=== PATIENT | male | born 1955 | race Caucasian/White ===

== ENCOUNTER → 2016-08-25 | Outpatient (CLI) | payer OTHER ==
[~2016-08-25] MED LIST: ASPI325T32 PO; ASPI81TA3 PO; GEMF600T PO; HYDR-906 PO; METF1000 PO; PANT40TA4 PO; SIMV40TA2 PO; TRAM50TA2 PO
== END | disposition home or self-care (01) ==
LOC: EDSEX → HKI 09:30 → MERGE 10:00
PROVIDERS: ATTEND Orthopaedic Surgery
DX: Z01.818 Encounter for other preprocedural examination (principal); M16.11 Unilateral primary osteoarthritis, right hip; M25.551 Pain in right hip; M17.11 Unilateral primary osteoarthritis, right knee; M25.561 Pain in right knee
CPT/HCPCS: 87081; Z7500; G0463

== ENCOUNTER 2016-08-28 07:25 | Inpatient (IN) | payer OTHER ==
[2016-08-27 12:19] VITALS: BMI 32.0
[2016-08-28] VITALS (40 sets, daily range): BP systolic 71–117; BP diastolic 52–80; PULSE 102–117; RESP 15–25; Ht 185.4 cm; Wt 111.6 kg
[~2016-08-28] VITALS: Ht 185.4 cm; Wt 111.6 kg
[2016-08-28] MEDS ORDERED: TRANEXAMIC ACID IV ONE (08:00)
[2016-08-28] MEDS ORDERED: ON CALL TO OR IV ONE (08:00)
[2016-08-28] MEDS ORDERED: traMADOL 50 MG TAB X 1 DOSE PO ONE (08:00)
[2016-08-28] MEDS ORDERED: CELECOXIB 400 MG PO X1 DOSE PO ONE (08:00)
[2016-08-28] MEDS ORDERED: oxyCODONE (CR) 10 MG TAB [oxyCONTIN] X1 DOSE PO ONE (08:00)
[2016-08-28] MEDS ORDERED: CEFAZOLIN 2GM/50 ML (PMX) 50 ML X1 BEFORE INCISION IVPB ONE (08:00)
[2016-08-28] MEDS ORDERED: SOD CHLORIDE 0.9% IV ONE (08:00)
[2016-08-28] MEDS: LACTATED RINGER'S 1,000 ML IV SCH ×4 (08:21→23:14)
[2016-08-28] MEDS ORDERED: SOD CHLORIDE 0.9% IVPB SCH (08:30)
[2016-08-28] MEDS: PAIN COCKTAIL-CEFUROXIME IRR SCH ×14 (08:30→13:42)
[2016-08-28] MEDS ORDERED: TRANEXAMIC ACID IVPB SCH (08:30)
[2016-08-28] MEDS ORDERED: PREGABALIN 300 MG PO X1 PO ONE (08:30)
[2016-08-28] MEDS ORDERED: SIMV40TA2 PO (09:05)
[2016-08-28] MEDS ORDERED: ASPI81TA3 PO (09:05)
[2016-08-28] MEDS ORDERED: METF1000 PO (09:05)
[2016-08-28] MEDS ORDERED: GEMF600T PO (09:05)
--- NOTE | 2016-08-28 10:03 | HPN ---
Date/Time of Note Date/Time of Note DATE: 08/28/16 TIME: 10:02 Interval H&P Admission Note Pt. seen H&P reviewed: No system changes No change from H&P by Bg ARGUETA dated 08/14/16 JUAN A MCCLENDON MD Aug 28, 2016 10:03
[2016-08-28] MEDS ORDERED: SODIUM CL BACTERIOSTATIC 30 ML INJ ONE (10:25)
[2016-08-28] MEDS ORDERED: VANCOMYCIN 1 GM INJ ONE (10:25)
[2016-08-28] MEDS ORDERED: POLYMYXIN B 500000 UNIT INJ ONE (10:25)
[2016-08-28] MEDS ORDERED: ONDANSETRON 4 MG INJ ONE (10:37)
[2016-08-28] MEDS ORDERED: PROPOFOL 20 ML ONE (10:37)
[2016-08-28] MEDS ORDERED: METOCLOPRAMIDE 10 MG INJ ONE (10:37)
[2016-08-28] MEDS ORDERED: DEXAMETHASONE 4 MG/ML 1 ML INJ ONE (10:37)
[2016-08-28] MEDS ORDERED: KETOROLAC 30 MG INJ ONE (10:37)
[2016-08-28] MEDS ORDERED: MIDAZOLAM 1 MG/ML 2 ML INJ ONE (10:38)
[2016-08-28] MEDS ORDERED: BACITRACIN 50000 UNITS INJ ONE (10:46)
[2016-08-28] MEDS ORDERED: PHENYLephrine (100 MCG/ML) 5ML SYG ONE ×5 (11:11→14:22)
[2016-08-28] MEDS ORDERED: ONDANSETRON 4 MG INJ IV PRN ×2 (12:30→19:00)
[2016-08-28] MEDS ORDERED: EXPAREL NOTE (BUPIVICAINE LIPOSOMAL) XX SCH (12:30)
[2016-08-28] MEDS ORDERED: BUPIVACAINE LIPOSOME/PF 266 MG/20 ML VIAL INFIL SCH (12:30)
[2016-08-28] MEDS ORDERED: DIPHENHYDRAMINE 50 MG INJ IV PRN (12:30)
[2016-08-28] MEDS ORDERED: METOCLOPRAMIDE 10 MG INJ IV PRN (12:30)
[2016-08-28] MEDS ORDERED: MEPERIDINE 25 MG INJ IV PRN (12:30)
[2016-08-28] MEDS ORDERED: HYDROmorphONE (0.2 MG/ML) 10ML SYG IV PRN ×3 (12:30)
[2016-08-28] MEDS ORDERED: ROCURONIUM 50 MG INJ ONE (12:36)
[2016-08-28] MEDS ORDERED: SUCCINYLCHOLINE CHLORIDE 100 MG/5 ML SYG IV ONE (12:36)
[2016-08-28] MEDS ORDERED: FUROSEMIDE 20 MG INJ ONE (13:54)
--- NOTE | 2016-08-28 14:00 | RADRPT ---
PROCEDURE: Right hip x-rays series CLINICAL INDICATION: Arthroplasty TECHNIQUE: 12 images obtained intraoperatively during a hip arthroplasty procedure. COMPARISON: None available FINDINGS: 12 images were obtained intraoperatively for localization during a hip hemiarthroplasty. 48 seconds of fluoroscopy time was utilized by the physician Dr. Sharma during the procedure in progress. IMPRESSION: 12 images and 48 seconds of fluoroscopy time views intraoperatively for localization during a hip he miarthroplasty. .Grant Oconnor MD, MD Date Time Electronically viewed and signed by .Grant Oconnor MD, on 08/28/2016 14:00 .B/
[2016-08-28] MEDS ORDERED: ALBUMIN HUMAN 5% 250 ML ONE (14:04)
--- NOTE | 2016-08-28 14:28 | OPPN ---
Date/Time of Note Date/Time of Note DATE: 08/28/16 TIME: 14:26 Operative/Procedure Note Dictation # [id number] Pre-Operative Diagnosis Right Hip OA Post-Operative Diagnosis Same Procedure Right Anterior EMERY Surgeon: JUAN A MCCLENDON MD Train Starter: LISETH NICOLE PA-C Anesthesiologist: YOLANDA CASTAÑEDA MD Findings Severe OA Blood Usage/Administration None Implants/Grafts Depuy EMERY Estimated blood loss: other Drains Hemovac x 1 Specimens Femoral Head Complications: None Anesthesia type: spinal JUAN A MCCLENDON MD Aug 28, 2016 14:27
[2016-08-28] MEDS ORDERED: BISACODYL 10 MG SUPP PR PRN (14:30)
[2016-08-28] MEDS ORDERED: NA PHOSPHATE/BIPHOS 133 ML ENEMA PR PRN (14:30)
[2016-08-28] MEDS ORDERED: ASPIRIN (EC) 325 MG TAB PO ONE (14:30)
[2016-08-28] MEDS ORDERED: NACL 0.9% 3 ML SYG IV SCH (14:30)
--- NOTE | 2016-08-28 14:53 | OPR ---
DATE OF OPERATION: 08/28/2016 PREOPERATIVE DIAGNOSIS: Right hip osteoarthritis. POSTOPERATIVE DIAGNOSIS: Right hip osteoarthritis. OPERATION PERFORMED: Right anterior total hip arthroplasty. SURGEON: Juan A Sharma MD RADIOLOGIC TECHNOLOGY INSTRUCTOR: KENDALL Zhao COMPONENTS USED: DePuy size 54 mm Gription Logan cup, 54/36 neutral AltrX polyethylene liner, si ze 6 standard Actis stem, 36+5 ceramic head. ANESTHESIA: Spinal plus general endotracheal intubation plus periarticular injection. ANESTHESIOLOGIST: Dr. Wood ESTIMATED BLOOD LOSS: 500 mL. INTRAVENOUS FLUIDS: Crystalloid 2500 mL. SPECIMENS: Femoral head. DRAINS: Hemovac x1. COMPLICATIONS: None. DISPOSITION: The patient tolerated the procedure well and was taken to the recovery room in stable c ondition. INDICATIONS: The patient is a 61-year-old gentleman who has had progressively worsening pain in the right hip with radiographic evidence of severe osteoarthritis. He has failed nonsurgical means of t reatment to control his pain including activity modifications, pain medications, and ambulatory assi st devices. Despite these measures, he has had worsening pain, and I felt he would benefit from a t otal hip arthroplasty through an anterior approach. The risks, benefits, and alternatives of the procedure were explained in detail to the patient. I ex plained the risks of the surgery to include, but not be limited to: bleeding and possible need for b lood transfusion; infection; pain; stiffness; neurovascular injury with possible numbness, weakness, and/or paralysis anywhere from the hip down to the toes; fracture; instability; dislocation; leg le ngth inequality; wear and/or loosening of the prosthesis and possible need for future revision; bloo d clots; pulmonary embolism; and anesthetic complications such as heart attack, stroke, GI bleed, pn eumonia, and/or . Ample time was allowed for the patient to ask questions, all of which were ad dressed and answered. The patient understood the risks involved and wished to proceed. Informed cons ent was signed prior to the procedure. PROCEDURE: The patient's right hip was initialed with a marking pen in the preoperative area to iden tify the correct operative site. The patient was brought to the operating room and transferred from the [facility] to the [facility] where a spinal anesthetic was administered. The patient was th en anesthetized and intubated. A Thomas catheter was placed. Both feet were placed into well-padded b oots which were then placed into the leg holders of the traction booms. A timeout was performed to c onfirm that the right side was the correct operative site. The patient was given 2 g of intravenous Ancef within one hour prior to the procedure. The operative hip was prepped and draped in the usual sterile fashion. A 10 cm oblique incision was made over the anterior aspect of the hip and carried down through subcu taneous tissue and fat with sharp dissection. The tensor fascia jonny was incised along the length of the wound. The tensor fascia muscle was retracted laterally and the sartorius medially. The anterio r circumflex vessels were identified and tied off with 2-0 silk suture and coagulated with the [employer] manager. The rectus femoris was elevated off the anterior capsule and an anterior capsulec arcenio performed. A femoral neck osteotomy was made and the head removed from the acetabulum. The acet abulum was denuded of cartilage circumferentially, as was the femoral head. Retractors were placed a round the acetabulum. The remnants of the labrum and ligamentum teres were excised. I reamed the wayne tabulum to the medial wall and then went into an anatomic position and increased the reamer size in 2 mm increments until I got a good bite and was down to bleeding subchondral bone. The Logan cup was opened and impacted into the acetabulum and sat flush circumferentially, gettin g a good bite. C-arm imaging showed it had about 40 to 45 degrees of abduction and 20 degrees of ant eversion. The real liner was opened and impacted into the acetabulum and sat flush circumferentiall y. Attention was turned towards the femur. The operative leg was carefully lowered to the floor with the leg adducted. The foot was then conductor symphonic orchestra ally rotated to approximately 110 degrees. A posteromedial release was performed to optimize exposur e. The femoral hook was placed underneath the proximal femur and the hydraulic lift was then used to elevate the femur up out of the wound. The gary cutter osteotome was used to remove the remaining overhanging greater trochanter. The femur was then broached, going up in one size increments until it sat flush with the neck cut and a stable fit was achieved. The trial neck and head were assembled and reduced into the acetabulum. Fluoroscopic imaging showed the components to be in good position and the leg lengths and offsets to be equal. At this point, the trial was dislocated and the trial broach removed. The canal was irrigated and dr pearce. The real stem was opened and impacted into the femur. The trunnion was irrigated and dried, and the real femoral head was impacted onto the trunnion, and reduced into the acetabulum. The soft tissues were infiltrated with a mixture of 150 mg of 0.5% Bupivacaine, 8 mg of Duramorph, 3 00 mcg of epinephrine, 30 mg of Toradol, 100 mcg of clonidine, 750 mg of cefuroxime and 86 mL of nor mal saline, followed by an injection of 266 mg of liposomal Bupivacaine. At this point the hip was i rrigated with a mixture of betadine/saline and then antibiotic saline with pulsatile lavage. A Hemov ac drain was placed in the deep portion of the wound and brought out the anterolateral thigh. There was good hemostasis. The tensor fascia jonny was repaired with a running #1 Vicryl. The deep fat laye r was irrigated and closed with 2-0 Stratafix and the subcutaneous layer closed with 3-0 Stratafix a nd the skin was sealed with Prineo Dermabond. The drain was secured with 3-0 nylon. The sponge and needle counts were correct at the end of the case. The wound was covered with an occl usive dressing. The patient was awakened, extubated, and taken to the recovery room in stable condit ion. Dictated By: JUAN A CARPIO/RADHA Conf#: [id number] DID#: [id number]
--- NOTE | 2016-08-28 14:54 | PN ---
Date/Time of Note Date/Time of Note DATE: 08/28/16 TIME: 14:52 Assessment/Plan Lines/Catheters IV Catheter Type (from Nrsg): Saline Lock Assessment/Plan Assessment/Plan Stable in PACU, s/p right anterior EMERY -cont abx -pain meds -ASA/SCDs for DVT prophylaxis -monitor drain -OOB with PT -check AM labs -d/c giang tomorrow morning XR of the right hip shows good alignment with no evidence of fracture or dislocation Subjective 24 Hr Interval Summary Stable in PACU. Denies any pain. Moving extremities. Sleepy secondary to anesthesia. Exam/Review of Systems Vital Signs Vitals Vital Signs Date Time Temp Pulse Resp B/P Pulse Ox O2 Delivery O2 Flow Rate FiO2 08/28/16 14:36 99.0 08/28/16 08:44 102 16 116/80 95 Room Air Exam Free Text/Dictation Dressing dry Incision clean, dry, and intact without redness or drainage 5/5 Quadriceps, Tibialis Anterior, EHL, Gastroc, Soleus, Peroneals Normal sensation Palpable DT/PT, CR <2 sec No distal edema LISETH NICOLE PA-C Aug 28, 2016 14:54
[2016-08-28] MEDS: CEFAZOLIN 2 GM/50 ML (PMX) 50 ML IVPB SCH ×2 (15:04→23:10)
[2016-08-28 15:06] LABS: HEMATOCRIT 31.7 % (42.0-52.0)
--- NOTE | 2016-08-28 15:12 | RADRPT ---
PROCEDURE: XR Pelvis CLINICAL INDICATION: Postop TECHNIQUE: An AP radiograph was submitted. COMPARISON: 3 intraoperative images done earlier on the same date FINDINGS: Osseous structures: A total right hip replacement appears to be well seated. There is a small amoun t of methylmethacrylate extending inferiorly and laterally from the inferior tip of the acetabular c omponent. The osseous elements otherwise appear intact. Joint spaces: Moderate degenerative changes seen about the left hip. Soft tissues: A surgical drain has been placed about the right hip and subcutaneous air is evident. A Thomas catheter is in place. IMPRESSION: 1. Well seated total right hip replacement with a small amount of methylmethacrylate projecting inf erior to the prosthetic joint. A drain has been placed and subcutaneous air is evident. 2. Moderate degenerative change seen about the left hip. 3. A Thomas catheter is evident. Physician Eusebio Date Time Electronically viewed and signed by Physician Eusebio on 08/28/2016 15:11 /
--- NOTE | 2016-08-28 15:14 | RADRPT ---
PROCEDURE: XR Right Hip CLINICAL INDICATION: Postop TECHNIQUE: A single AP view was submitted. COMPARISON: The intraoperative study than on the same date FINDINGS: Osseous structures: A well seated total right hip replacement is again noted. Joint spaces: The hip joint is well maintained there is no distension of the joint capsule. Soft tissues: Subcutaneous air is evident) has been placed. A Thomas catheter is evident. IMPRESSION: Well seated total right hip replacement with subcutaneous air and a drain in place. Physician Eusebio Date Time Electronically viewed and signed by Sima Dale Physician on 08/28/2016 15:13 /
[2016-08-28 15:29] LABS: CALCIUM 8.4 mg/dl (8.4-10.2); CREATININE 1.16 mg/dl (0.61-1.24); POTASSIUM 4.7 mmol/L (3.5-5.1)
[2016-08-28] MEDS ORDERED: DIPHENHYDRAMINE 25 MG CAP PO PRN (18:00)
[2016-08-28] MEDS: ACETAMINOPHEN 1000MG/100ML IV 100 ML IVPB SCH (18:21)
[2016-08-28] MEDS: PANTOPRAZOLE (EC) 40 MG TAB PO SCH (18:21)
[2016-08-28] MEDS: metFORMIN 500 MG TAB PO SCH (18:21)
[2016-08-28] MEDS: traMADol 50 MG TAB PO SCH (18:21)
[2016-08-28] MEDS ORDERED: DEXTROSE 50% 50 ML SYRINGE IV PRN ×2 (20:00)
[2016-08-28] MEDS ORDERED: GLUCAGON 1 MG INJ IM PRN (20:00)
[2016-08-28] MEDS ORDERED: GLUCOSE GEL 15 GRAM TUBE BUCCAL PRN (20:00)
[2016-08-28] MEDS ORDERED: GLUCOSE GEL 15 GRAM TUBE PO PRN ×2 (20:00)
[2016-08-28] MEDS: GEMFIBROZIL 600 MG TAB PO SCH ×2 (21:00→23:11)
[2016-08-28] MEDS: DOCUSATE SODIUM 100 MG CAP PO SCH (21:04)
[2016-08-28] MEDS: PREGABALIN 25 MG CAP PO SCH (21:05)
[2016-08-28] MEDS: INSULIN ASPART [NOVOLOG] 3 ML PEN SC SCH (21:13)
[2016-08-29 00:04] VITALS: BP 112/62; RESP 20
[2016-08-29] MEDS: traMADol 50 MG TAB PO SCH ×4 (00:34→18:06)
[2016-08-29] MEDS: ACETAMINOPHEN 1000MG/100ML IV 100 ML IVPB SCH ×3 (00:35→12:03)
[2016-08-29] MEDS ORDERED: ACCUCHECK XX SCH (02:00)
[2016-08-29] MEDS: ACCUCHECK XX SCH (02:00)
[2016-08-29] MEDS: oxyCODONE 5 MG TAB PO PRN ×4 (03:58→20:36)
[2016-08-29] MEDS: MAGNESIUM HYDROXIDE 30ML CUP PO PRN ×2 (03:58→20:42)
[2016-08-29 05:12] VITALS: BP 121/75; PULSE 77; RESP 18
[2016-08-29 05:41] LABS: HEMOGLOBIN 9.4 g/dl (14.0-18.0)
[2016-08-29] MEDS: CEFAZOLIN 2 GM/50 ML (PMX) 50 ML IVPB SCH (05:46)
[2016-08-29] MEDS: LACTATED RINGER'S 1,000 ML IV SCH ×4 (05:47→22:22)
[2016-08-29] MEDS: PANTOPRAZOLE (EC) 40 MG TAB PO SCH ×2 (05:47→18:06)
[2016-08-29 05:50] LABS: BASOPHILS % 0.2 % (0.0-2.0); HEMATOCRIT 26.5 % (42.0-52.0); HEMOGLOBIN 9.3 g/dl (14.0-18.0); LYMPHOCYTES # 2.6 10^3/ul (0.8-2.9); LYMPHOCYTES % 15.2 % (15.0-51.0); MEAN CORPUSCULAR HEMOGLOBIN 30.4 pg (29.0-33.0); MONOCYTE # 1.6 10^3/ul (0.3-0.9); MONOCYTES % 9.2 % (0.0-11.0); NEUTROPHILS % 75.4 % (39.0-77.0); PLATELET COUNT 384 10^3/UL (140-440); RED BLOOD COUNT 3.05 10^6/ul (4.70-6.10); RED CELL DISTRIBUTION WIDTH 13.5 % (11.5-14.5); UNCORRECTED WBC 17.3 10^3/ul (4.8-10.8); WHITE BLOOD COUNT 17.3 10^3/ul (4.8-10.8)
[2016-08-29 05:56] LABS: POTASSIUM 4.1 mmol/L (3.5-5.1)
[2016-08-29 05:58] LABS: CREATININE 1.13 mg/dl (0.61-1.24)
[2016-08-29 05:59] LABS: CALCIUM 8.4 mg/dl (8.4-10.2)
[2016-08-29 06:09] LABS: CONDITION 1
--- NOTE | 2016-08-29 07:41 | PDOCDIS ---
Discharge Instructions DIAGNOSIS Discharge Diagnosis: s/p right anterior EMERY CONDITION Patient Condition: Good HOME CARE INSTRUCTIONS: Diet Instructions: Regular ACTIVITY: Activity Restrictions: Slowly Increase Activity Rest between Activity Avoid heavy lifting No Sexual Activity Do not operate Machinery Do not operate Power Tool Avoid Heavy Housework Keep Limb Elevated Bathing Restrictions: Shower FOLLOW UP/APPOINTMENTS Appointments follow up with Dr. Sharma in the office on 09/08/16 OTHER ORDERS: Other Orders: S/P Anterior EMERY Physical Therapy: Three times per week at home x 2 weeks Daily in Rehab/SNF (if indicated) WB STATUS: WBAT Strengthening exercises for both upper and un-operated lower extremities. 1. Gait training with front wheeled walker 2. Wide base gait, no pivot turns. 3. Abductor strengthening. 4. Quadriceps and hamstring strengthening. 5. May switch to cane in contra lateral hand 6 weeks after surgery. 6. Physical Therapy can open case if nursing is not available. 7. Ice Packs while at rest to surgical wound for 20 minutes, 3 times/day. 8. Patient requires mobile SCDs to reduce risk of developing DVT following EMERY. Patient will use the mobile SCDs for 30 days postoperatively. Hip Precautions: No posterior hip precautions. Bathing assistance by home health aide twice weekly if Medicare patient. Occupational Therapy: Evaluation for assistive devices and ADL training. Wound Care: Keep incision dry & covered with Tegaderm until first visit with Dr. Sharma Anticoagulation Orders: Enteric Coated Aspirin 325 mg po bid x 6 weeks from date of surgery Follow-up:Call for an appointment with Dr. Sharma in 1 week after discharged from hospital at DME Orders: ALISSA, 3-in-1 Commode, Mobile SCDs LISETH NICOLE PA-C Aug 29, 2016 07:41
[2016-08-29] MEDS ORDERED: TRAM50TA2 PO (07:43)
[2016-08-29] MEDS ORDERED: ASPI325T32 PO (07:43)
[2016-08-29] MEDS ORDERED: PANT40TA4 PO (07:43)
[2016-08-29] MEDS ORDERED: HYDR-906 PO (07:43)
[2016-08-29] MEDS: INSULIN ASPART [NOVOLOG] 3 ML PEN SC SCH ×4 (07:50→21:00)
[2016-08-29 07:51] VITALS: BP 131/22; RESP 20
[2016-08-29 08:06] LABS: ADD UMIC YES; URINE BILIRUBIN (Dip) NEGATIVE (NEGATIVE); URINE BLOOD (Dip) 3+ (NEGATIVE); URINE COLOR LT. YELLOW (YELLOW); URINE GLUCOSE (Dip) NEGATIVE (NEGATIVE); URINE KETONES (Dip) NEGATIVE (NEGATIVE); URINE LEUKOCYTE ESTERASE (Dip) NEGATIVE (NEGATIVE); URINE NITRITE (Dip) NEGATIVE (NEGATIVE); URINE TOTAL PROTEIN (Dip) TRACE (NEGATIVE); URINE UROBILINOGEN (Dip) 0.2 E.U./dL (0.1-1.0)
[2016-08-29] MEDS: PREGABALIN 25 MG CAP PO SCH ×2 (08:36→20:35)
[2016-08-29] MEDS: metFORMIN 500 MG TAB PO SCH ×2 (08:36→18:06)
[2016-08-29] MEDS: CELECOXIB 200 MG CAP PO SCH (08:36)
[2016-08-29] MEDS: ASPIRIN (EC) 325 MG TAB PO SCH ×2 (08:36→20:35)
[2016-08-29] MEDS: GEMFIBROZIL 600 MG TAB PO SCH ×2 (08:36→21:44)
[2016-08-29] MEDS: DOCUSATE SODIUM 100 MG CAP PO SCH ×2 (08:37→20:36)
--- NOTE | 2016-08-29 09:13 | PN ---
Date/Time of Note Date/Time of Note DATE: 08/29/16 TIME: 09:11 Assessment/Plan Lines/Catheters IV Catheter Type (from Nrsg): Peripheral IV Thomas in Place (from Nrsg): Yes Assessment/Plan Assessment/Plan Stable POD #1 s/p right anterior EMERY -d/c abx -pain meds -ASA/SCDs -check CBC tomorrow. Leukocytosis likely secondary to IV decadron given intraop -OOB with PT -drain removed today -dressing changed -d/c planning. Would like to go to SNF Subjective 24 Hr Interval Summary Doing well. No acute overnight events. Denies significant pain. VSS, afebrile. Exam/Review of Systems Vital Signs Vitals Vital Signs Date Time Temp Pulse Resp B/P Pulse Ox O2 Delivery O2 Flow Rate FiO2 08/29/16 07:51 98.4 104 20 131/22 96 08/29/16 05:12 Nasal Cannula 2.0 Intake and Output 08/28/16 08/28/16 08/29/16 15:00 23:00 07:00 Intake Total 2751 ml 400 ml 550 ml Output Total 700 ml 990 ml Balance 2051 ml 400 ml -440 ml Exam Free Text/Dictation Hemovac: 140cc Dressing dry Incision clean, dry, and intact without redness or drainage 5/5 Quadriceps, Tibialis Anterior, EHL, Gastroc, Soleus, Peroneals Normal sensation Palpable DT/PT, CR <2 sec No distal edema Results Result Diagram: 08/29/160 08/29/160 LISETH NICOLE PA-C Aug 29, 2016 09:13
[2016-08-29 09:57] LABS: URINE RBCS 25-50 /HPF (0)
[2016-08-29 09:58] LABS: BACTERIA,URINE FEW
--- NOTE | 2016-08-29 13:02 | PN ---
Date/Time of Note Date/Time of Note DATE: 08/29/16 TIME: 13:00 Assessment/Plan VTE Prophylaxis VTE Prophylaxis Intervention: SCD's Lines/Catheters IV Catheter Type (from Nrs): Saline Lock Urinary Cath still in place: Yes Subjective 24 Hr Interval Summary Free Text/Dictation Anesthesia Note: A 61 year old male s/p right hip arthroplasty under GAand spinal s/P #1, he is doing fine, ambulated no paain, N/V ,or headache, back is clean no nfection or inflammatin. V/Sstable. Exam/Review of Systems Vital Signs Vitals Vital Signs Date Time Temp Pulse Resp B/P Pulse Ox O2 Delivery O2 Flow Rate FiO2 08/29/16 07:51 98.4 104 20 131/22 96 08/29/16 05:12 Nasal Cannula 2.0 Intake and Output 08/28/16 08/28/16 08/29/16 14:59 22:59 06:59 Intake Total 2751 ml 400 ml 550 ml Output Total 700 ml 990 ml Balance 2051 ml 400 ml -440 ml Results Result Diagram: 08/29/16 0430 08/29/16 0430 Results 24 hrs Laboratory Tests Test 08/28/16 14:55 08/28/16 16:55 08/28/16 20:19 08/29/16 01:35 Anion Gap 18 H Blood Urea Nitrogen 22 H Calcium Level 8.4 Carbon Dioxide Level 22 Chloride Level 106 Creatinine 1.16 Glucose Level 177 Hematocrit 31.7 L Hemoglobin 11.0 L Potassium Level 4.7 Sodium Level 141 Bedside Glucose 162 281 H 148 Test 08/29/16 04:00 08/29/16 04:30 08/29/16 07:59 08/29/16 11:51 Urine Bacteria FEW Urine Bilirubin NEGATIVE Urine Clarity CLEAR Urine Color LT. YELLOW Urine Epithelial Cells FEW Urine Glucose NEGATIVE Urine Hemoglobin 3+ H Urine Ketones NEGATIVE Urine Leukocyte Esterase NEGATIVE Urine Microscopic RBC 25-50 Urine Microscopic WBC 2-5 Urine Nitrite NEGATIVE Urine Specific Howell 1.025 Urine Total Protein TRACE Urine Urobilinogen 0.2 E.U./dL Urine pH 5.5 Anion Gap 20 H Basophils # 0.0 Basophils % 0.2 Blood Morphology Comment Blood Urea Nitrogen 27 H Calcium Level 8.4 Carbon Dioxide Level 22 Chloride Level 102 Creatinine 1.13 Eosinophils # 0.0 Eosinophils % 0.0 Glucose Level 166 Hematocrit 26.5 L Hemoglobin 9.3 L Lymphocytes # 2.6 Lymphocytes % 15.2 Mean Corpuscular Hemoglobin 30.4 Mean Corpuscular Hemoglobin Concent 35.0 Mean Corpuscular Volume 87.0 Mean Platelet Volume 7.0 L Monocytes # 1.6 H Monocytes % 9.2 Neutrophils # 13.0 H Neutrophils % 75.4 Nucleated Red Blood Cells # 0.0 Nucleated Red Blood Cells % 0.0 Platelet Count 384 Potassium Level 4.1 Red Blood Count 3.05 L Red Cell Distribution Width 13.5 Sodium Level 140 White Blood Count 17.3 H Bedside Glucose 155 174 Medications Medications Current Medications Miscellaneous Information 1 ea NOTE XX ; Start 08/28/16 at 12:30; Stop 09/01/16 at 12:29 Gemfibrozil 600 mg 600 mg BID PO Last administered on 08/29/16 08:36; Admin Dose 600 MG; Start 08/28/16 at 21:00 Lactated Ringer's (Lr) 1,000 ml @ 125 mls/hr Q8H IV Last administered on 23:14; Admin Dose 125 MLS/HR; Start 08/28/16 at 14:22 Celecoxib 200 mg 200 mg DAILY PO Last administered on 08/29/16 08:36; Admin Dose 200 MG; Start 08/29/16 at 09:00 Acetaminophen (Ofirmev 1000mg/ 100ml Iv) 100 ml @ 400 mls/hr Q6 IVPB Last administered on 08/29/16 12:03; Admin Dose 400 MLS/HR; Start 08/28/16 at 18:00 ; Stop 08/29/16 at 17:59 Tramadol HCl (Ultram) 50 mg Q6 PO Last administered on 08/29/16 12:43; Admin Dose 50 MG; Start 08/28/16 at 18:00; Stop 08/31/16 at 17:59 Oxycodone HCl (Roxicodone) 5 mg Q4H PRN PO PAIN LEVEL 1-3 Last administered on 08/29/16 03:58; Admin Dose 5 MG; Start 08/28/16 at 19:00 Oxycodone HCl (Roxicodone) 10 mg Q4H PRN PO PAIN LEVEL 4-7 Last administered on 08/29/16 08:08; Admin Dose 10 MG; Start 08/28/16 at 19:00 Hydromorphone HCl (Dilaudid) 1 mg Q3H PRN IV PAIN LEVEL 8-10; Start 08/28/16 at 14:30 Ondansetron HCl (Zofran Inj) 4 mg Q6H PRN IV NAUSEA AND/OR VOMITING; Start at 19:00 Bisacodyl (Dulcolax Supp) 10 mg Q12H PRN [place] CONSTIPATION; Start 08/28/16 at 14: 30 Magnesium Hydroxide (Milk Of Mag) 30 ml BID PRN PO CONSTIPATION Last administered on 08/29/16 03:58; Admin Dose 30 ML; Start 08/28/16 at 14:30 Sodium Biphosphate/ Sodium Phosphate (Fleet Enema) 133 ml DAILY PRN [place] CONSTIPATION; Start 08/28/16 at 14:30 Docusate Sodium (Colace) 100 mg BID PO Last administered on 08/29/16 08:37; Admin Dose 100 MG; Start 08/28/16 at 21:00 Diphenhydramine HCl (Benadryl) 25 mg Q6H PRN PO PRURITUS; Start 08/28/16 at 18: 00 Aspirin (Ecotrin) 325 mg BID PO Last administered on 08/29/16 08:36; Admin Dose 325 MG; Start 08/29/16 at 09:00 Pregabalin (Lyrica) 50 mg BID PO Last administered on 08/29/16 08:36; Admin Dose 50 MG; Start 08/28/16 at 21:00 Pantoprazole (Protonix Tab) 40 mg BID@06,18 PO Last administered on 08/29/16 05:47; Admin Dose 40 MG; Start 08/28/16 at 18:00 Diagnostic Test (Pha) (Accucheck) 1 ea 02 XX ; Start 08/29/16 at 02:00 Miscellaneous Information 1 ea NOTE XX ; Start 08/28/16 at 20:00 Glucose (Glutose) 15 gm Q15M PRN PO DECREASED GLUCOSE; Start 08/28/16 at 20:00 Glucose (Glutose) 22.5 gm Q15M PRN PO DECREASED GLUCOSE; Start 08/28/16 at 20: 00 Dextrose (D50w Syringe) 25 ml Q15M PRN IV DECREASED GLUCOSE; Start 1/26/17 at 20:00 Dextrose (D50w Syringe) 50 ml Q15M PRN IV DECREASED GLUCOSE; Start 08/28/16 at 20:00 Glucagon (Glucagen) 1 mg Q15M PRN IM DECREASED GLUCOSE; Start 08/28/16 at 20:00 Glucose (Glutose) 15 gm Q15M PRN BUCCAL DECREASED GLUCOSE; Start 08/28/16 at 20 :00 YOLANDA CASTAÑEDA MD Aug 29, 2016 13:02
--- NOTE | 2016-08-29 16:09 | QN ---
Documentation Comment [id number] hp REMY GLEASON MD Aug 29, 2016 16:09
[2016-08-29] MEDS: HYDROmorphONE 1 MG/ML SYG IV PRN ×2 (16:23→22:56)
--- NOTE | 2016-08-29 17:40 | CONS ---
DATE OF ADMISSION: 08/28/2016 DATE OF CONSULTATION: Thank you, Dr. Sharma, for kindly asking me to see this patient in consultation. HISTORY OF PRESENT ILLNESS: The patient is a 61-year-old male with history of diabetes, dyslipidemi a, and arthritis. He underwent a total right hip replacement with a small amount of methyl methacry late projecting inferior to the prosthetic joint on x-ray. The patient's pain is under control, and the patient is going to be monitored. PAST MEDICAL HISTORY: Dyslipidemia and diabetes mellitus. ALLERGY HISTORY: NEGATIVE. FAMILY HISTORY: Noncontributory. SOCIAL HISTORY: Noncontributory. MEDICATION HISTORY: At home, the patient is on aspirin, gemfibrozil, metformin, and simvastatin. REVIEW OF SYSTEMS: HEENT: Unremarkable. RESPIRATORY: Unremarkable. CARDIOVASCULAR: Unremarkable. ABDOMEN: Unremarkable. EXTREMITIES: No pain at this point. CENTRAL NERVOUS SYSTEM: Unremarkable. PHYSICAL EXAMINATION: GENERAL: Obese male, awake, alert. VITAL SIGNS: Pulse 90, blood pressure 112/62. HEAD: Atraumatic, normocephalic. Pupils equal, reactive to light. NECK: Supple. No JVD. LUNGS: Clear. CARDIOVASCULAR: S1, S2 normal. ABDOMEN: Soft, nontender. Bowel sounds positive. No palpable mass. EXTREMITIES: No cyanosis, clubbing, or edema. Dressing on the right hip noted. LABORATORY DATA: WBC 17.3, hematocrit 26.5, platelet count of 334. Sodium 140, potassium 4.1, BUN 27, creatinine 1.13. IMPRESSION: 1. The patient is status post right anterior total hip arthroplasty. 2. The patient has leukocytosis. 3. The patient has azotemia. 4. Diabetes mellitus. 5. Dyslipidemia. 6. Presented with anemia. PLAN: Continue current treatment. The patient is currently on incentive spirometry. The patient's laboratory data will be followed. The patient is also on Tylenol, cefazolin, lactated ringer, and aspirin. The patient is on Celebrex. The patient is on Lopid, metformin, Reglan, sliding scale, ox ycodone, Protonix, pregabalin. The patient will also have SCDs to the legs. The patient has DVT pr ophylaxis once cleared by orthopedic for possible Lovenox. Dictated By: REMY SILVESTRE/NTS Conf#: [id number] [facility]#: [id number]
[2016-08-29 19:20] VITALS: BP 133/85; RESP 20
[2016-08-30] MEDS: ACCUCHECK XX SCH (02:00)
[2016-08-30] MEDS: traMADol 50 MG TAB PO SCH ×4 (03:34→17:50)
[2016-08-30] MEDS: HYDROmorphONE 1 MG/ML SYG IV PRN ×3 (03:48→20:55)
[2016-08-30 05:42] LABS: HEMATOCRIT 23.5 % (42.0-52.0); HEMOGLOBIN 8.3 g/dl (14.0-18.0)
[2016-08-30 05:43] LABS: BASOPHILS % 0.3 % (0.0-2.0); EOSINOPHILS # 0.1 10^3/ul (0.0-0.5); EOSINOPHILS % 0.7 % (0.0-7.0); HEMATOCRIT 23.4 % (42.0-52.0); HEMOGLOBIN 8.3 g/dl (14.0-18.0); LYMPHOCYTES # 2.2 10^3/ul (0.8-2.9); LYMPHOCYTES % 15.5 % (15.0-51.0); MEAN CORPUSCULAR HEMOGLOBIN 30.3 pg (29.0-33.0); MEAN CORPUSCULAR HGB CONC 35.7 g/dl (32.0-37.0); MEAN CORPUSCULAR VOLUME 84.9 fl (82.0-101.0); MEAN PLATELET VOLUME 6.9 fl (7.4-10.4); MONOCYTE # 1.4 10^3/ul (0.3-0.9); NEUTROPHIL # 10.4 10^3/ul (1.6-7.5); NEUTROPHILS % 73.5 % (39.0-77.0); PLATELET COUNT 390 10^3/UL (140-440); RED BLOOD COUNT 2.75 10^6/ul (4.70-6.10); RED CELL DISTRIBUTION WIDTH 13.9 % (11.5-14.5); UNCORRECTED WBC 14.2 10^3/ul (4.8-10.8); WHITE BLOOD COUNT 14.2 10^3/ul (4.8-10.8)
[2016-08-30 05:45] LABS: CONDITION 1
[2016-08-30] MEDS: PANTOPRAZOLE (EC) 40 MG TAB PO SCH ×2 (06:18→17:50)
[2016-08-30] MEDS: LACTATED RINGER'S 1,000 ML IV SCH ×3 (06:22→22:22)
[2016-08-30 06:25] LABS: POTASSIUM 4.4 mmol/L (3.5-5.1)
[2016-08-30 06:28] LABS: CREATININE 0.93 mg/dl (0.61-1.24)
[2016-08-30 06:29] LABS: CALCIUM 8.4 mg/dl (8.4-10.2)
--- NOTE | 2016-08-30 07:42 | PN ---
Date/Time of Note Date/Time of Note DATE: 08/30/16 TIME: 07:40 Assessment/Plan Lines/Catheters IV Catheter Type (from Nrsg): Saline Lock Thomas in Place (from Nrsg): Yes Assessment/Plan Assessment/Plan POD # 2. Stable. Low h/h secondary to acute blood loss from surgery. -Transfuse 1 unit PRBC given patient has low h/h and is symptomatic with lightheadedness and tachycardia -Pain meds -OOB with PT -ASA/SCDs -If h/h stable tomorrow and symptoms resolve, may transfer to SNF Subjective 24 Hr Interval Summary Resting comfortably. Feels a little lightheaded. No CP/SOB. Exam/Review of Systems Vital Signs Vitals Vital Signs Date Time Temp Pulse Resp B/P Pulse Ox O2 Delivery O2 Flow Rate FiO2 08/29/16 19:20 98.5 116 20 133/85 90 08/29/16 05:12 Nasal Cannula 2.0 Intake and Output 08/29/16 08/29/16 08/30/16 15:00 23:00 07:00 Intake Total 1900 ml 550 ml Output Total 900 ml Balance 1900 ml -350 ml Exam Free Text/Dictation Dressing dry Incision clean, dry, and intact without redness or drainage Thigh soft 5/5 Quadriceps, Tibialis Anterior, EHL, Gastroc Soleus, Peroneals Normal sensation Palpable DP/PT, CR < 2 Sec No distal edema Results Result Diagram: 08/30/16 0435 08/30/16 0435 JUAN A MCCLENDON MD Aug 30, 2016 07:42
[2016-08-30 07:58] VITALS: BP 143/83; RESP 18
[2016-08-30] MEDS: MAGNESIUM HYDROXIDE 30ML CUP PO PRN ×2 (08:15→21:36)
[2016-08-30] MEDS: metFORMIN 500 MG TAB PO SCH ×2 (08:15→17:50)
[2016-08-30] MEDS: DOCUSATE SODIUM 100 MG CAP PO SCH ×2 (08:16→20:44)
[2016-08-30] MEDS: INSULIN ASPART [NOVOLOG] 3 ML PEN SC SCH ×4 (08:19→20:46)
[2016-08-30] MEDS: ASPIRIN (EC) 325 MG TAB PO SCH ×2 (08:22→20:44)
[2016-08-30] MEDS: GEMFIBROZIL 600 MG TAB PO SCH ×2 (08:22→20:44)
[2016-08-30] MEDS: CELECOXIB 200 MG CAP PO SCH (08:22)
[2016-08-30] MEDS: PREGABALIN 25 MG CAP PO SCH ×2 (08:24→20:44)
[2016-08-30] MEDS: oxyCODONE 5 MG TAB PO PRN ×4 (08:25→21:36)
--- NOTE | 2016-08-30 09:36 | PN ---
Date/Time of Note Date/Time of Note DATE: 08/30/16 TIME: 09:35 Assessment/Plan VTE Prophylaxis VTE Prophylaxis Intervention: other Lines/Catheters IV C[facility] Type ([facility] Saline Lock Urinary Cath still in place: Yes Reason Cath still needed: other (indicate) Assessment/Plan Chief Complaint/Hosp Course 1. The patient is status post right anterior total hip arthroplasty. 2. The patient has leukocytosis. 3. The patient has azotemia. 4. Diabetes mellitus. 5. Dyslipidemia. 6. Presented with anemia. plan prbc dvt prophylaxis per ortho post op Problems: Subjective 24 Hr Interval Summary Respiratory: no complaints Gastrointestinal: no complaints Exam/Review of Systems Vital Signs Vitals Vital Signs Date Time Temp Pulse Resp B/P Pulse Ox O2 Delivery O2 Flow Rate FiO2 08/30/16 07:58 97.2 109 18 143/83 98 08/29/16 05:12 Nasal Cannula 2.0 Intake and Output 08/29/16 08/29/16 08/30/16 15:00 23:00 07:00 Intake Total 1900 ml 550 ml Output Total 900 ml Balance 1900 ml -350 ml Exam Neck: supple Respiratory: clear to auscultation Cardiovascular: regular rate and rhythm Extremities: No edema, No tenderness Results Result Diagram: 08/30/16 0435 08/30/16 0435 Results 24 hrs Laboratory Tests Test 08/29/16 11:51 08/29/16 17:26 08/29/16 20:44 08/30/16 04:35 Bedside Glucose 174 141 171 Anion Gap 15 Basophils # 0.0 Basophils % 0.3 Blood Morphology Comment Blood Urea Nitrogen 22 H Calcium Level 8.4 Carbon Dioxide Level 27 Chloride Level 100 Creatinine 0.93 Eosinophils # 0.1 Eosinophils % 0.7 Glucose Level 168 Hematocrit 23.4 L Hemoglobin 8.3 L Lymphocytes # 2.2 Lymphocytes % 15.5 Mean Corpuscular Hemoglobin 30.3 Mean Corpuscular Hemoglobin Concent 35.7 Mean Corpuscular Volume 84.9 Mean Platelet Volume 6.9 L Monocytes # 1.4 H Monocytes % 10.0 Neutrophils # 10.4 H Neutrophils % 73.5 Nucleated Red Blood Cells # 0.0 Nucleated Red Blood Cells % 0.0 Platelet Count 390 Potassium Level 4.4 Red Blood Count 2.75 L Red Cell Distribution Width 13.9 Sodium Level 138 White Blood Count 14.2 H Test 08/30/16 07:46 Bedside Glucose 173 Medications Medications Current Medications Miscellaneous Information 1 ea NOTE XX ; Start 08/28/16 at 12:30; Stop 09/01/16 at 12:29 Gemfibrozil 600 mg 600 mg BID PO Last administered on 08/30/16 08:22; Admin Dose 600 MG; Start 08/28/16 at 21:00 Lactated Ringer's (Lr) 1,000 ml @ 125 mls/hr Q8H IV Last administered on 23:14; Admin Dose 125 MLS/HR; Start 08/28/16 at 14:22 Celecoxib (Celebrex) 200 mg DAILY PO Last administered on 08/30/16 08:22; Admin Dose 200 MG; Start 08/29/16 at 09:00 Tramadol HCl (Ultram) 50 mg Q6 PO Last administered on 08/30/16 03:34; Admin Dose 50 MG; Start 08/28/16 at 18:00; Stop 08/31/16 at 17:59 Oxycodone HCl (Roxicodone) 5 mg Q4H PRN PO PAIN LEVEL 1-3 Last administered on 08/29/16 03:58; Admin Dose 5 MG; Start 08/28/16 at 19:00 Oxycodone HCl (Roxicodone) 10 mg Q4H PRN PO PAIN LEVEL 4-7 Last administered on 08/30/16 08:25; Admin Dose 10 MG; Start 08/28/16 at 19:00 Hydromorphone HCl (Dilaudid) 1 mg Q3H PRN IV PAIN LEVEL 8-10 Last administered on 08/30/16 06:18; Admin Dose 1 MG; Start 08/28/16 at 14:30 Ondansetron HCl (Zofran Inj) 4 mg Q6H PRN IV NAUSEA AND/OR VOMITING; Start at 19:00 Bisacodyl (Dulcolax Supp) 10 mg Q12H PRN [place] CONSTIPATION; Start 08/28/16 at 14: 30 Magnesium Hydroxide (Milk Of Mag) 30 ml BID PRN PO CONSTIPATION Last administered on 08/30/16 08:15; Admin Dose 30 ML; Start 08/28/16 at 14:30 Sodium Biphosphate/ Sodium Phosphate (Fleet Enema) 133 ml DAILY PRN [place] CONSTIPATION; Start 08/28/16 at 14:30 Docusate Sodium (Colace) 100 mg BID PO Last administered on 08/30/16 08:16; Admin Dose 100 MG; Start 08/28/16 at 21:00 Diphenhydramine HCl (Benadryl) 25 mg Q6H PRN PO PRURITUS; Start 08/28/16 at 18: 00 Aspirin (Ecotrin) 325 mg BID PO Last administered on 08/30/16 08:22; Admin Dose 325 MG; Start 08/29/16 at 09:00 Pregabalin (Lyrica) 50 mg BID PO Last administered on 08/30/16 08:24; Admin Dose 50 MG; Start 08/28/16 at 21:00 Pantoprazole (Protonix Tab) 40 mg BID@06,18 PO Last administered on 08/30/16 06:18; Admin Dose 40 MG; Start 08/28/16 at 18:00 Diagnostic Test (Pha) (Accucheck) 1 ea 02 XX ; Start 08/29/16 at 02:00 Miscellaneous Information 1 ea NOTE XX ; Start 08/28/16 at 20:00 Glucose (Glutose) 15 gm Q15M PRN PO DECREASED GLUCOSE; Start 08/28/16 at 20:00 Glucose (Glutose) 22.5 gm Q15M PRN PO DECREASED GLUCOSE; Start 08/28/16 at 20: 00 Dextrose (D50w Syringe) 25 ml Q15M PRN IV DECREASED GLUCOSE; Start 08/28/16 at 20:00 Dextrose (D50w Syringe) 50 ml Q15M PRN IV DECREASED GLUCOSE; Start 08/28/16 at 20:00 Glucagon (Glucagen) 1 mg Q15M PRN IM DECREASED GLUCOSE; Start 08/28/16 at 20:00 Glucose (Glutose) 15 gm Q15M PRN BUCCAL DECREASED GLUCOSE; Start 08/28/16 at 20 :00 REMY GLEASON MD Aug 30, 2016 09:36
[2016-08-30 19:35] VITALS: BP 132/79; RESP 20
[2016-08-30 21:30] VITALS: BP 124/68; PULSE 85
[2016-08-31] MEDS: traMADol 50 MG TAB PO SCH ×3 (00:03→13:14)
[2016-08-31] MEDS: oxyCODONE 5 MG TAB PO PRN ×4 (01:44→22:20)
[2016-08-31] MEDS: ACCUCHECK XX SCH ×2 (01:57→23:38)
[2016-08-31] MEDS: PANTOPRAZOLE (EC) 40 MG TAB PO SCH ×2 (05:25→18:10)
[2016-08-31] MEDS: LACTATED RINGER'S 1,000 ML IV SCH ×3 (06:11→22:22)
[2016-08-31 06:40] LABS: POTASSIUM 4.3 mmol/L (3.5-5.1)
[2016-08-31 06:42] LABS: CREATININE 0.84 mg/dl (0.61-1.24)
[2016-08-31 06:43] LABS: CALCIUM 8.6 mg/dl (8.4-10.2)
[2016-08-31 07:00] LABS: BASOPHILS % 0.3 % (0.0-2.0); EOSINOPHILS # 0.1 10^3/ul (0.0-0.5); EOSINOPHILS % 0.6 % (0.0-7.0); HEMATOCRIT 26.2 % (42.0-52.0); HEMOGLOBIN 9.2 g/dl (14.0-18.0); LYMPHOCYTES # 1.8 10^3/ul (0.8-2.9); LYMPHOCYTES % 12.5 % (15.0-51.0); MEAN CORPUSCULAR HGB CONC 35.3 g/dl (32.0-37.0); MEAN CORPUSCULAR VOLUME 84.9 fl (82.0-101.0); MEAN PLATELET VOLUME 6.9 fl (7.4-10.4); MONOCYTE # 1.5 10^3/ul (0.3-0.9); MONOCYTES % 10.4 % (0.0-11.0); NEUTROPHILS % 76.2 % (39.0-77.0); PLATELET COUNT 399 10^3/UL (140-440); RED BLOOD COUNT 3.08 10^6/ul (4.70-6.10); RED CELL DISTRIBUTION WIDTH 13.6 % (11.5-14.5); UNCORRECTED WBC 14.4 10^3/ul (4.8-10.8); WHITE BLOOD COUNT 14.4 10^3/ul (4.8-10.8)
[2016-08-31 07:02] LABS: CONDITION 1
[2016-08-31 07:24] VITALS: BP 122/75; RESP 19
[2016-08-31] MEDS: INSULIN ASPART [NOVOLOG] 3 ML PEN SC SCH ×4 (07:50→20:44)
[2016-08-31] MEDS: PREGABALIN 25 MG CAP PO SCH ×2 (08:26→20:46)
[2016-08-31] MEDS: CELECOXIB 200 MG CAP PO SCH (08:26)
[2016-08-31] MEDS: ASPIRIN (EC) 325 MG TAB PO SCH ×2 (08:26→20:45)
[2016-08-31] MEDS: DOCUSATE SODIUM 100 MG CAP PO SCH ×2 (08:26→20:45)
[2016-08-31] MEDS: GEMFIBROZIL 600 MG TAB PO SCH ×2 (08:26→20:47)
[2016-08-31] MEDS: metFORMIN 500 MG TAB PO SCH ×2 (08:31→18:10)
--- NOTE | 2016-08-31 09:27 | PN ---
Date/Time of Note Date/Time of Note DATE: 08/31/16 TIME: 09:18 Assessment/Plan VTE Prophylaxis VTE Prophylaxis Intervention: ambulation, SCD's, other (ASA 325 BID) Lines/Catheters IV Catheter Type (from Nrs): Saline Lock Thomas in Place (from Nrs): No Assessment/Plan Assessment/Plan POD # 3. Stable. Low h/h secondary to acute blood loss from surgery yesterday. 1 unit of PRBC given yesterday at 1345 without complications. -hemoglobin/hematocrit is improved since yesterday. No longer symptomatic in regards to complaints of lightheadedness and dizziness. Patient states that he is feeling well. (Please refer to labs for specific values) -Pain meds as needed -ASA/SCDs for continued DVT prophylaxis. -SNF is unable to take patient until tomorrow. Patient will likely be discharged to SNF tomorrow provided that all levels continue to remain stable and patient has no complaints. Subjective 24 Hr Interval Summary 61-year-old male postop day 3 status post right anterior hip arthroplasty. Patient was experiencing dizziness and lightheadedness with a low hemoglobin yesterday. Had 1 unit of PRBC given yesterday. Today, patient has no complaints of dizziness or lightheadedness. Patient stating he is feeling much better in that regard. In regards to his right hip he reports mild pain complaints. Patient states that physical therapy has been going well with minimal pain if he takes pain medication about 30 minutes prior to initiation of therapy. Denies any calf pain, shortness of breath or difficulty breathing. Patient states he was ready to be discharged today but has been told that [facility] facility cannot take him until tomorrow and therefore will likely be discharged tomorrow. Constitutional: no complaints Pain Control: mild Exam/Review of Systems Vital Signs Vitals Vital Signs Date Time Temp Pulse Resp B/P Pulse Ox O2 Delivery O2 Flow Rate FiO2 08/31/16 07:24 98.1 102 19 122/75 92 08/29/16 05:12 Nasal Cannula 2.0 Intake and Output 08/30/16 08/30/16 08/31/16 15:00 23:00 07:00 Intake Total 350 ml 1300 ml 1400 ml Output Total 840 ml 1200 ml Balance 350 ml 460 ml 200 ml Exam Free Text/Dictation Dressing dry Incision clean, dry, and intact without redness or drainage Thigh soft 5/5 Quadriceps, Tibialis Anterior, EHL, Gastroc Soleus, Peroneals Normal sensation Palpable DP/PT, CR < 2 Sec No distal edema Results Result Diagram: 08/31/16 0431 08/31/16 0431 AASHISH VERDUZCO PA-C Aug 31, 2016 09:27
--- NOTE | 2016-08-31 12:54 | PN ---
Date/Time of Note Date/Time of Note DATE: 08/31/16 TIME: 12:51 Assessment/Plan VTE Prophylaxis VTE Prophylaxis Intervention: SCD's Lines/Catheters [facility] Saline Lock Urinary Cath still in place: No Assessment/Plan Chief Complaint/Hosp Course 1. The patient is status post right anterior total hip arthroplasty. 2. The patient has leukocytosis. 3. The patient has azotemia. 4. Diabetes mellitus. 5. Dyslipidemia. 6. Post op anemia. plan prbc dvt prophylaxis per ortho post op snf soon Problems: Subjective 24 Hr Interval Summary Eyes: no complaints Respiratory: no complaints Cardiovascular: no complaints Gastrointestinal: no complaints Genitourinary: no complaints Musculoskeletal: no complaints Exam/Review of Systems Vital Signs Vitals Vital Signs Date Time Temp Pulse Resp B/P Pulse Ox O2 Delivery O2 Flow Rate FiO2 08/31/16 07:24 98.1 102 19 122/75 92 08/29/16 05:12 Nasal Cannula 2.0 Intake and Output 08/30/16 08/30/16 08/31/16 15:00 23:00 07:00 Intake Total 350 ml 1300 ml 1400 ml Output Total 840 ml 1200 ml Balance 350 ml 460 ml 200 ml Exam Respiratory: clear to auscultation Cardiovascular: regular rate and rhythm Gastrointestinal: soft Musculoskeletal: nl extremities to inspection, range of motion (pain) Skin: other (neg) Results Result Diagram: 08/31/16 0431 08/31/16 0431 Results 24 hrs Laboratory Tests Test 08/30/16 17:19 08/30/16 20:46 08/31/16 04:31 08/31/16 07:44 Bedside Glucose 122 139 121 Anion Gap 16 Basophils # 0.0 Basophils % 0.3 Blood Morphology Comment Blood Urea Nitrogen 21 H Calcium Level 8.6 Carbon Dioxide Level 27 Chloride Level 100 Creatinine 0.84 Eosinophils # 0.1 Eosinophils % 0.6 Glucose Level 114 # Hematocrit 26.2 L Hemoglobin 9.2 L Lymphocytes # 1.8 Lymphocytes % 12.5 L Mean Corpuscular Hemoglobin 30.0 Mean Corpuscular Hemoglobin Concent 35.3 Mean Corpuscular Volume 84.9 Mean Platelet Volume 6.9 L Monocytes # 1.5 H Monocytes % 10.4 Neutrophils # 11.0 H Neutrophils % 76.2 Nucleated Red Blood Cells # 0.0 Nucleated Red Blood Cells % 0.0 Platelet Count 399 Potassium Level 4.3 Red Blood Count 3.08 L Red Cell Distribution Width 13.6 Sodium Level 139 White Blood Count 14.4 H Test 08/31/16 12:03 Bedside Glucose 125 Medications Medications Current Medications Miscellaneous Information 1 ea NOTE XX ; Start 08/28/16 at 12:30; Stop 09/01/16 at 12:29 Gemfibrozil 600 mg 600 mg BID PO Last administered on 08/31/16 08:26; Admin Dose 600 MG; Start 08/28/16 at 21:00 Lactated Ringer's (Lr) 1,000 ml @ 125 mls/hr Q8H IV Last administered on 23:14; Admin Dose 125 MLS/HR; Start 08/28/16 at 14:22 Celecoxib (Celebrex) 200 mg DAILY PO Last administered on 08/31/16 08:26; Admin Dose 200 MG; Start 08/29/16 at 09:00 Tramadol HCl (Ultram) 50 mg Q6 PO Last administered on 08/31/16 05:25; Admin Dose 50 MG; Start 08/28/16 at 18:00; Stop 08/31/16 at 17:59 Oxycodone HCl (Roxicodone) 5 mg Q4H PRN PO PAIN LEVEL 1-3 Last administered on 08/30/16 13:51; Admin Dose 5 MG; Start 08/28/16 at 19:00 Oxycodone HCl (Roxicodone) 10 mg Q4H PRN PO PAIN LEVEL 4-7 Last administered on 08/31/16 08:26; Admin Dose 10 MG; Start 08/28/16 at 19:00 Hydromorphone HCl (Dilaudid) 1 mg Q3H PRN IV PAIN LEVEL 8-10 Last administered on 08/30/16 20:55; Admin Dose 1 MG; Start 08/28/16 at 14:30 Ondansetron HCl (Zofran Inj) 4 mg Q6H PRN IV NAUSEA AND/OR VOMITING; Start at 19:00 Bisacodyl (Dulcolax Supp) 10 mg Q12H PRN [place] CONSTIPATION; Start 08/28/16 at 14: 30 Magnesium Hydroxide (Milk Of Mag) 30 ml BID PRN PO CONSTIPATION Last administered on 08/30/16 21:36; Admin Dose 30 ML; Start 08/28/16 at 14:30 Sodium Biphosphate/ Sodium Phosphate (Fleet Enema) 133 ml DAILY PRN [place] CONSTIPATION; Start 08/28/16 at 14:30 Docusate Sodium (Colace) 100 mg BID PO Last administered on 08/31/16 08:26; Admin Dose 100 MG; Start 08/28/16 at 21:00 Diphenhydramine HCl (Benadryl) 25 mg Q6H PRN PO PRURITUS; Start 08/28/16 at 18: 00 Aspirin (Ecotrin) 325 mg BID PO Last administered on 08/31/16 08:26; Admin Dose 325 MG; Start 08/29/16 at 09:00 Pregabalin (Lyrica) 50 mg BID PO Last administered on 08/31/16 08:26; Admin Dose 50 MG; Start 08/28/16 at 21:00 Pantoprazole (Protonix Tab) 40 mg BID@06,18 PO Last administered on 08/31/16 05:25; Admin Dose 40 MG; Start 08/28/16 at 18:00 Diagnostic Test (Pha) (Accucheck) 1 ea 02 XX ; Start 08/29/16 at 02:00 Miscellaneous Information 1 ea NOTE XX ; Start 08/28/16 at 20:00 Glucose (Glutose) 15 gm Q15M PRN PO DECREASED GLUCOSE; Start 08/28/16 at 20:00 Glucose (Glutose) 22.5 gm Q15M PRN PO DECREASED GLUCOSE; Start 08/28/16 at 20: 00 Dextrose (D50w Syringe) 25 ml Q15M PRN IV DECREASED GLUCOSE; Start 08/28/16 at 20:00 Dextrose (D50w Syringe) 50 ml Q15M PRN IV DECREASED GLUCOSE; Start 08/28/16 at 20:00 Glucagon (Glucagen) 1 mg Q15M PRN IM DECREASED GLUCOSE; Start 08/28/16 at 20:00 Glucose (Glutose) 15 gm Q15M PRN BUCCAL DECREASED GLUCOSE; Start 08/28/16 at 20 :00 REMY GLEASON MD Aug 31, 2016 12:54
[2016-08-31] MEDS: MAGNESIUM HYDROXIDE 30ML CUP PO PRN (13:15)
[2016-08-31 20:40] VITALS: BP 106/144; RESP 20
[2016-09-01] MEDS: PANTOPRAZOLE (EC) 40 MG TAB PO SCH ×2 (05:01→18:13)
[2016-09-01] MEDS: LACTATED RINGER'S 1,000 ML IV SCH ×2 (05:02→14:22)
[2016-09-01] MEDS: oxyCODONE 5 MG TAB PO PRN ×4 (05:07→18:13)
[2016-09-01] MEDS: MAGNESIUM HYDROXIDE 30ML CUP PO PRN (05:07)
[2016-09-01 05:49] LABS: POTASSIUM 4.8 mmol/L (3.5-5.1)
[2016-09-01 05:51] LABS: CREATININE 0.71 mg/dl (0.61-1.24)
[2016-09-01 05:52] LABS: CALCIUM 8.5 mg/dl (8.4-10.2)
[2016-09-01 06:18] LABS: HEMATOCRIT 26.2 % (42.0-52.0); HEMOGLOBIN 9.2 g/dl (14.0-18.0)
[2016-09-01 08:03] VITALS: BP 134/78; RESP 18
--- NOTE | 2016-09-01 08:54 | PN ---
Date/Time of Note Date/Time of Note DATE: 09/01/16 TIME: 08:52 Assessment/Plan Lines/Catheters IV Catheter Type (from Nrsg): Saline Lock Thomas in Place (from Nrsg): No Assessment/Plan Assessment/Plan Stable for d/c s/p right anterior EMERY -pain meds -OOB with PT -ASA/SCDs -dressings changed -d/c to SNF today. (SNF TBD based off patient insurance -follow up in the office with Dr. Sharma in 1 week Subjective 24 Hr Interval Summary Doing well. No acute overnight events. Pain controlled. Stable for d/c to SNF today. Exam/Review of Systems Vital Signs Vitals Vital Signs Date Time Temp Pulse Resp B/P Pulse Ox O2 Delivery O2 Flow Rate FiO2 09/01/16 08:03 97.8 78 18 134/78 94 08/29/16 05:12 Nasal Cannula 2.0 Intake and Output 08/31/16 08/31/16 09/01/16 15:00 23:00 07:00 Intake Total 1400 ml 800 ml Output Total 1000 ml Balance 1400 ml -200 ml Exam Free Text/Dictation Dressing dry Incision clean, dry, and intact without redness or drainage 5/5 Quadriceps, Tibialis Anterior, EHL, Gastroc, Soleus, Peroneals Normal sensation Palpable DT/PT, CR <2 sec No distal edema Results Result Diagram: 09/01/167 09/01/16 0447 LISETH NICOLE PA-C Sep 01, 2016 08:54
[2016-09-01] MEDS: metFORMIN 500 MG TAB PO SCH ×2 (09:09→18:16)
[2016-09-01] MEDS: GEMFIBROZIL 600 MG TAB PO SCH (09:09)
[2016-09-01] MEDS: PREGABALIN 25 MG CAP PO SCH (09:10)
[2016-09-01] MEDS: CELECOXIB 200 MG CAP PO SCH (09:10)
[2016-09-01] MEDS: DOCUSATE SODIUM 100 MG CAP PO SCH (09:10)
[2016-09-01] MEDS: ASPIRIN (EC) 325 MG TAB PO SCH (09:10)
[2016-09-01] MEDS: INSULIN ASPART [NOVOLOG] 3 ML PEN SC SCH ×3 (09:12→18:13)
--- NOTE | 2016-09-01 16:05 | PN ---
Date/Time of Note Date/Time of Note DATE: 09/01/16 TIME: 16:04 Assessment/Plan VTE Prophylaxis VTE Prophylaxis Intervention: other Lines/Catheters IV [facility]from [facility] Saline Lock Urinary Cath still in place: No Assessment/Plan Chief Complaint/Hosp Course 1. The patient is status post right anterior total hip arthroplasty. 2. The patient has leukocytosis. 3. The patient has azotemia. 4. Diabetes mellitus. 5. Dyslipidemia. 6. Post op anemia. 7 post op leucocytosis plan prbc dvt prophylaxis per ortho post op snf soon? Problems: Subjective 24 Hr Interval Summary Respiratory: no complaints Cardiovascular: no complaints Gastrointestinal: no complaints Exam/Review of Systems Vital Signs Vitals Vital Signs Date Time Temp Pulse Resp B/P Pulse Ox O2 Delivery O2 Flow Rate FiO2 09/01/16 08:03 97.8 78 18 134/78 94 08/29/16 05:12 Nasal Cannula 2.0 Intake and Output 08/31/16 08/31/16 09/01/16 15:00 23:00 07:00 Intake Total 1400 ml 800 ml Output Total 1000 ml Balance 1400 ml -200 ml Exam Neck: supple Respiratory: clear to auscultation Cardiovascular: regular rate and rhythm Gastrointestinal: soft Musculoskeletal: range of motion (good) Results Result Diagram: 09/01/16 0447 09/01/16 0447 Results 24 hrs Laboratory Tests Test 08/31/16 17:11 08/31/16 20:44 09/01/16 04:47 09/01/16 07:59 Bedside Glucose 132 135 159 Anion Gap 17 H Blood Urea Nitrogen 19 Calcium Level 8.5 Carbon Dioxide Level 25 Chloride Level 101 Creatinine 0.71 Glucose Level 122 Hematocrit 26.2 L Hemoglobin 9.2 L Potassium Level 4.8 Sodium Level 138 Test 09/01/16 12:00 Bedside Glucose 123 Medications Medications Current Medications Gemfibrozil 600 mg 600 mg BID PO Last administered on 09/01/16 09:09; Admin Dose 600 MG; Start 08/28/16 at 21:00 Lactated Ringer's (Lr) 1,000 ml @ 125 mls/hr Q8H IV Last administered on 23:14; Admin Dose 125 MLS/HR; Start 08/28/16 at 14:22 Celecoxib (Celebrex) 200 mg DAILY PO Last administered on 09/01/16 09:10; Admin Dose 200 MG; Start 08/29/16 at 09:00 Oxycodone HCl (Roxicodone) 5 mg Q4H PRN PO PAIN LEVEL 1-3 Last administered on 08/30/16 13:51; Admin Dose 5 MG; Start 08/28/16 at 19:00 Oxycodone HCl (Roxicodone) 10 mg Q4H PRN PO PAIN LEVEL 4-7 Last administered on 09/01/16 13:43; Admin Dose 10 MG; Start 08/28/16 at 19:00 Hydromorphone HCl (Dilaudid) 1 mg Q3H PRN IV PAIN LEVEL 8-10 Last administered on 08/30/16 20:55; Admin Dose 1 MG; Start 08/28/16 at 14:30 Ondansetron HCl (Zofran Inj) 4 mg Q6H PRN IV NAUSEA AND/OR VOMITING; Start at 19:00 Bisacodyl (Dulcolax Supp) 10 mg Q12H PRN [place] CONSTIPATION; Start 08/28/16 at 14: 30 Magnesium Hydroxide (Milk Of Mag) 30 ml BID PRN PO CONSTIPATION Last administered on 09/01/16 05:07; Admin Dose 30 ML; Start 08/28/16 at 14:30 Sodium Biphosphate/ Sodium Phosphate (Fleet Enema) 133 ml DAILY PRN [place] CONSTIPATION; Start 08/28/16 at 14:30 Docusate Sodium (Colace) 100 mg BID PO Last administered on 09/01/16 09:10; Admin Dose 100 MG; Start 08/28/16 at 21:00 Diphenhydramine HCl (Benadryl) 25 mg Q6H PRN PO PRURITUS; Start 08/28/16 at 18: 00 Aspirin (Ecotrin) 325 mg BID PO Last administered on 09/01/16 09:10; Admin Dose 325 MG; Start 08/29/16 at 09:00 Pregabalin (Lyrica) 50 mg BID PO Last administered on 09/01/16 09:10; Admin Dose 50 MG; Start 08/28/16 at 21:00 Pantoprazole (Protonix Tab) 40 mg BID@18 PO Last administered on 09/01/16 05:01; Admin Dose 40 MG; Start 08/28/16 at 18:00 Diagnostic Test (Pha) (Accucheck) 1 ea 02 XX ; Start 08/29/16 at 02:00 Miscellaneous Information 1 ea NOTE XX ; Start 08/28/16 at 20:00 Glucose (Glutose) 15 gm Q15M PRN PO DECREASED GLUCOSE; Start 08/28/16 at 20:00 Glucose (Glutose) 22.5 gm Q15M PRN PO DECREASED GLUCOSE; Start 08/28/16 at 20: 00 Dextrose (D50w Syringe) 25 ml Q15M PRN IV DECREASED GLUCOSE; Start 08/28/16 at 20:00 Dextrose (D50w Syringe) 50 ml Q15M PRN IV DECREASED GLUCOSE; Start 08/28/16 at 20:00 Glucagon (Glucagen) 1 mg Q15M PRN IM DECREASED GLUCOSE; Start 08/28/16 at 20:00 Glucose (Glutose) 15 gm Q15M PRN BUCCAL DECREASED GLUCOSE; Start 08/28/16 at 20 :00 REMY GLEASON MD Sep 01, 2016 16:05
--- NOTE | 2016-09-02 10:25 | DS ---
DATE OF ADMISSION: 08/28/2016 DATE OF DISCHARGE: 09/01/2016 CONDITION UPON DISCHARGE: Stable ADMITTING DIAGNOSIS: Painful right hip secondary to advanced osteoarthritis. DISCHARGE DIAGNOSIS: Right hip osteoarthritis. PROCEDURE PERFORMED: Right anterior total hip arthroplasty. HOSPITAL COURSE: This is a 61-year-old male who was seen in the clinic initially complaining of right hip and groin pain. He had previously undergone conservative modalities unsuccessfully and it was thought he would benefit from a right anterior total hip arthroplasty. On 08/28/2016, the patient was admitted and taken to the operating room where he underwent a right anterior total hip arthroplasty. There were no intraoperative complications. The patient tolerated the procedure well. He was taken to the recovery room in stable condition. Pain was well controlled with oral pain medication. He was started on aspirin and SCDs for DVT prophylaxis. He remained hemodynamically stable and neurovascularly intact throughout his hospital stay. He had a prolonged hospital course secondary to difficulty finding a rehab facility for him to go to. On postoperative day #4, he was deemed stable for discharge and transferred over to [facility] in [place]. Prior to discharge, the incision was inspected and noted to be clean, dry and intact. Dressing changes were done prior to patient going over to [facility]. LABORATORY ANALYSIS UPON DISCHARGE: Hemoglobin 9.2, hematocrit 26.2, it is relatively unchanged. Chemistry panel was within normal limits. DISCHARGE MEDICATIONS: 1. [place] 5/325. 2. Tramadol 50 mg. 3. Aspirin 325 mg. 4. Protonix 40 mg. Additionally, the patient is to resume all his normal home medications. DISCHARGE INSTRUCTIONS: The patient was transferred to [facility] in stable condition. He is resumed on normal diet. Activities include weightbearing as tolerated on the right lower extremity. He is to begin physical therapy at the rehabilitation facility. He will be transferred with the medications noted above. Additionally, he is to resume all his normal home medications. The patient is to call the office or return to the emergency room for any concerns including increased redness, swelling, drainage, fever or any concern regarding the operation or site of incision. FOLLOWUP: The patient is to follow up with Dr. Sharma in the office on 2016. Dictated By: LISETH ARGUETA for JUAN A THOMAS/RADHA Conf#: [id number] [facility]#: [id number] MTDD
== END 2016-09-01 18:45 | DRG 470 ==
LOC: EDSEX → REC 07:25 → MERGE 14:06 → MS1 17:47
PROVIDERS: ADMIT Orthopaedic Surgery; ATTEND Orthopaedic Surgery
PROC: 0SR904Z Replacement of Right Hip Joint with Ceramic on Polyethylene Synthetic Substitute, Open Approach (ICD-10-PCS; principal; 2016-08-28 10:30)
PROC: 30233N1 Transfusion of Nonautologous Red Blood Cells into Peripheral Vein, Percutaneous Approach (ICD-10-PCS; 2016-08-30)
DX: M16.11 Unilateral primary osteoarthritis, right hip (principal); E66.01 Morbid (severe) obesity due to excess calories; E11.9 Type 2 diabetes mellitus without complications; E78.5 Hyperlipidemia, unspecified; D64.9 Anemia, unspecified; D72.829 Elevated white blood cell count, unspecified; R79.89 Other specified abnormal findings of blood chemistry; Z68.32 Body mass index [BMI] 32.0-32.9, adult
CPT/HCPCS: 36430; 72170; 73500; 73530; 80048; 81001; 81003; 82962; 85014; 85018; 85025; 86850; 86900; 86901; 86920; 87081; 87086; 88304; 88311; 97116; 97162; 97166; 97530; J1940; Z7610; C1776; C9290; J0131; J0171; J0330; J0690; J0697; J0735; J1100; J1170; J1815; J1885; J2250; J2274; J2370; J2405; J2765; J3370; J7120; P9016; P9045

== ENCOUNTER → 2016-09-08 | Outpatient (CLI) | payer OTHER ==
[~2016-09-08] MED LIST changes: -ASPI81TA3 PO
--- NOTE | 2016-09-09 06:25 | HKNOTE ---
DATE OF SERVICE: 09/08/2016 INTERVAL HISTORY: The patient was in today for a followup evaluation of his right hip. He is now about 10 days status post right anterior total hip arthroplasty. He is doing well overall. He has been having some mild intermittent pain. The patient was supposed to go to a [facility] facility , however, left and went home instead. Therefore, he has not started any outpatient physical therapy or home health. He denied any fever or chills. No erythema or warmth. He is in need of some new dentures and was questioning when he can see his dentist. He presents today for his first postoperative evaluation. PHYSICAL EXAMINATION: He is alert and oriented x4 and in no acute distress. He is walking with a walker. Exam of the incision demonstrates it to be clean, dry , and intact. Prineo is in place. There is no erythema or warmth. Hip range of motion is adequate. Leg lengths are equal. Compartments are soft. He is neurovascularly intact distally. IMAGING: X-rays of the right hip are obtained today and reviewed by me, show good anatomical location of the right hip prosthesis. No fracture or dislocation seen. ASSESSMENT: Ten days status post right anterior total hip arthroplasty, doing well. PLAN: 1. Prineo removed. We held off putting Steri-Strips secondary to some mild adhesive dermatitis. 2. Continue pain medication as needed. 3. Continue aspirin 325 mg b.i.d. for DVT prophylaxis. 4. We requested that he hold off on any dental procedure for at least 3 months. The patient agreed to do so. 5. We will begin outpatient physical therapy. 6. Follow up in 4 weeks for a repeat evaluation. Dictated By: LISETH ARGUETA for JUAN A THOMAS/RADHA Conf#: [id number] DID#: [id number] MTDD
--- NOTE | 2016-09-09 14:45 | RADRPT ---
PROCEDURE: XR Pelvis and right Hip. CLINICAL INDICATION: Pain TECHNIQUE: 2 views of the pelvis and right hip are available for review. COMPARISON: 08/28/2016 FINDINGS: Right hip arthroplasty is redemonstrated and normal anatomic position. There is no acute fracture o r dislocation. Left hip demonstrates mild joint space narrowing and osteophyte formation. There is degenerative spondylosis of the lower lumbar spine. No radiodense foreign body is identified. Bon y mineralization is normal. IMPRESSION: 1. Stable appearance of right hip arthroplasty. 2. Mild left hip osteoarthrosis. RPTAT: QQ .Jose Lovett MD, MD Date Time Electronically viewed and signed by .Jose Lovett MD, MD on 09/09/2016 14:44 .R/
== END | disposition home or self-care (01) ==
LOC: EDSEX → MERGE 10:00 → HKI 10:11
PROVIDERS: ATTEND Orthopaedic Surgery
DX: Z47.1 Aftercare following joint replacement surgery (principal); Z96.641 Presence of right artificial hip joint
CPT/HCPCS: 73502; Z7500; G0463

== ENCOUNTER → 2016-10-08 | Outpatient (CLI) | payer OTHER ==
--- NOTE | 2016-10-08 09:40 | RADRPT ---
PROCEDURE: XR pelvis/right hip. CLINICAL INDICATION: Hip pain TECHNIQUE: AP pelvis/lateral right hip view performed. COMPARISON: 09/09/2016 FINDINGS: There is a right total hip replacement. There is no evidence of loosening of the prosthesis. There is moderate left hip osteoarthrosis. This is associated with joint space narrowing, subchondra l sclerosis, subchondral cyst formation and osteophytosis. There is normal osseous mineralization. No fractures or osseous lesions are identified. The soft tissues are unremarkable. IMPRESSION: Right total hip replacement. Moderate left hip osteoarthrosis. RPTAT: HGDB .Grant Oconnor MD, Date Time Electronically viewed and signed by .Grant Oconnor MD, on 10/08/2016 09:39 .B/
== END | disposition home or self-care (01) ==
LOC: HKI 08:53
PROVIDERS: ATTEND Orthopaedic Surgery
DX: Z47.1 Aftercare following joint replacement surgery (principal); M16.11 Unilateral primary osteoarthritis, right hip; Z96.641 Presence of right artificial hip joint
CPT/HCPCS: 73502

== ENCOUNTER → 2016-11-19 | Outpatient (CLI) | payer OTHER ==
--- NOTE | 2016-11-19 11:36 | RADRPT ---
PROCEDURE: XR pelvis/right hip. CLINICAL INDICATION: Hip pain TECHNIQUE: AP pelvis/AP and lateral right hip views available for review. COMPARISON: 10/08/2016 FINDINGS: There is a right total hip replacement. There is no evidence of loosening of the prosthesis. There is moderate left hip osteoarthrosis. This is associated with joint space narrowing, subchondra l sclerosis, subchondral cyst formation and osteophytosis. There is normal osseous mineralization. N o fractures or osseous lesions are identified. The soft tissues are unremarkable. IMPRESSION: Right total hip replacement. Moderate left hip osteoarthrosis. RPTAT: [facility] .Grant Oconnor MD, MD Date Time Electronically viewed and signed by .Grnat Oconnor MD, on 11/19/2016 11:36 .B/
== END | disposition home or self-care (01) ==
LOC: HKI 09:04
PROVIDERS: ATTEND Orthopaedic Surgery
DX: Z47.1 Aftercare following joint replacement surgery (principal); Z96.641 Presence of right artificial hip joint
CPT/HCPCS: 73502

== ENCOUNTER → 2017-09-21 | Outpatient (CLI) | END | disposition home or self-care (01) ==

== ENCOUNTER 2017-11-11 05:09 | Emergency (ER) | END 2017-11-11 08:33 | disposition home or self-care (01) ==

== ENCOUNTER 2017-11-30 19:24 | Observation (INO) | END 2017-12-02 14:05 | disposition home or self-care (01) ==